=== PATIENT | female | born 1990 | race Caucasian/White ===

== ENCOUNTER 2017-05-27 11:39 | Emergency (ER) | payer OTHER ==
[~2017-05-27] VITALS: Ht 157.5 cm; Wt 75.0 kg
[2017-05-27 11:44] VITALS: BP 135/88; PULSE 94; RESP 16; TEMP 98.1; O2SAT 97
--- NOTE | 2017-05-27 11:47 | PD ---
HPI Chief Complaint: Injury Time Seen by Provider: 11:47 Travel History International Travel<30 days: No Contact w/Intl Traveler<30days: No Traveled to known affect area: No History of Present Illness HPI 26-year-old female presents to the emergency department for evaluation of right knee injury since yesterday. Patient states that she stepped wrong and twisted it. She states she's had 10 out of 10 pain posterior to the right knee since then. States it is worse with ambulation. Denies any alterations in sensation. She has no other symptoms reported. She has not taken anything for this pain. PFSH Past Medical History Medical History: Denies Significant Hx ?: Not LMP: 2 WEELS Social History Alcohol Use: No Tobacco Use: No Substance Use: No Allergies-Medications (Allergen,Severity, Reaction): Coded Allergies: No Known Allergies (Unverified , 05/27/17) Reported Meds & Prescriptions Reported Meds & Active Scripts Active Ibuprofen 800 Mg Tab 800 Mg PO Q8H PRN Reported Concerta (Methylphenidate HCl) 54 Mg Tata Unknown Dose PO DAILY Review of Systems Except as stated in HPI: all other systems reviewed are Neg Physical Exam Narrative GENERAL: Well-nourished, well-developed female patient, ambulatory with an antalgic gait no acute distress SKIN: Focused skin assessment warm/dry. HEAD: Normocephalic. EYES: No scleral icterus. No injection or drainage. NECK: Supple, trachea midline. No JVD or lymphadenopathy. CARDIOVASCULAR: Regular rate and rhythm without murmurs, gallops, or rubs. RESPIRATORY: Breath sounds equal bilaterally. No accessory muscle use. MUSCULOSKELETAL: No cyanosis, or edema. Distal pulses are palpable. Patient has full flexion-extension of the right knee. No laxity with valgus or varus stress. Nasima's test is negative. Sensation intact distal affected extremity. BACK: Nontender without obvious deformity. No CVA tenderness. Data Data Last Documented VS Vital Signs Date Time Temp Pulse Resp B/P (MAP) Pulse Ox O2 Delivery O2 Flow Rate FiO2 05/27/17 11:44 98.1 94 16 135/88 (104) 97 Orders Orders Knee, Complete (4vws) (05/27/17 ) Ketorolac Inj (Toradol Inj) (05/27/17 12:00) ^ Knee Immobilizer (05/27/17 12:22) Crutches (05/27/17 12:22) Ed Discharge Order (05/27/17 12:23) Immobilizer Knee 20 Inch (05/27/17 ) [facility] Medical Decision Making Medical Screen Exam Complete: Yes Emergency Medical Condition: Yes Medical Record Reviewed: Yes Differential Diagnosis Knee sprain versus fracture versus dislocation versus contusion Narrative Course 26-year-old female presents to emergency department for evaluation right knee pain. Imaging studies are complete with no acute bony abnormality identified. Patient was treated for pain, Care, and Discharged Home to Follow-Up with the Primary Care Provider. She Agrees to Return Immediately with Any Acute Worsening of Symptoms. Diagnosis Primary Impression: Right knee injury Qualified Codes: S89.91XA - Unspecified injury of right lower leg, initial encounter Referrals: Orthopaedic Surgeon Primary Care Physician Patient Instructions: General Instructions, Knee Exercises (GEN), Knee Immobilizer (ED) Additional Instructions: Ice and elevate to reduce pain and swelling Brace for support Follow-up with primary care provider Weight-bear as tolerated Seek orthopedic evaluation if symptoms persist. Outpatient MRI may be warranted Return immediately to the emergency department with any acute worsening symptoms Med/Other Pt SpecificInfo: Prescription(s) given Scripts Ibuprofen (Ibuprofen) 800 Mg Tab 800 MG PO Q8H Y for Pain/Inflammation, #30 TAB 0 Refills Prov: Maile Galarza 05/27/17 Disposition: 01 DISCHARGE HOME Condition: Stable Maile Galarza May 27, 2017 11:47
[2017-05-27] MEDS ORDERED: CONC54TA4 PO (11:51)
[2017-05-27] MEDS ORDERED: KETOROLAC TROMETHAMINE 60 MG/2 ML (IM) VIAL IM ONE (12:00)
--- NOTE | 2017-05-27 12:20 | RADRPT ---
EXAM DATE/TIME: 05/27/2017 12:06 [place] COMPARISON: No previous studies available for comparison. INDICATIONS : Fell yesterday, right knee pain MEDICAL HISTORY : None. SURGICAL HISTORY : None. ENCOUNTER: Initial ACUITY: 2 days PAIN SCORE: 9/10 LOCATION: Right knee FINDINGS: Four view examination of the right knee demonstrates no evidence of fracture or dislocation. Bony mi neralization is normal. The articular surfaces are intact. The suprapatellar soft tissues have a no rmal configuration. CONCLUSION: Unremarkable examination of the right knee. Tolu Mojica MD on May 27, 2017 at 12:17 Board Certified Radiologist. This report was verified electronically.
[2017-05-27] MEDS ORDERED: IBUP1TAB7 PO (12:25)
== END 2017-05-27 12:48 | disposition home or self-care (01) ==
LOC: PHEFT 11:39
DX: S89.91XA Unspecified injury of right lower leg, initial encounter (principal); X58.XXXA Exposure to other specified factors, initial encounter; Z79.899 Other long term (current) drug therapy
CPT/HCPCS: 73564; 96372; 99284; E0113; J1885; L1830